=== PATIENT | male | born 1970 | race Caucasian/White ===

== ENCOUNTER → 2016-11-02 | Day surgery (SDC) | payer OTHER ==
[~2016-11-02] VITALS: Ht 170.2 cm; Wt 56.5 kg
[2016-11-02 07:40] LABS: HCT 41.4 % (42.0-52.0); HGB 13.8 g/dl (13.2-18.0); MCH 30.4 pg (25.0-31.0); MCHC 33.3 g/dL (32.0-36.0); MCV 91.2 fL (78.0-100.0); MPV 9.5 fL (6.0-9.5); RBC 4.54 M/uL (4.70-6.00); RDW 13.1 % (11.5-14.0)
[2016-11-02 07:57] LABS: CREATININE 1.1 mg/dL (0.7-1.2); POTASSIUM 4.5 mmol/L (3.5-5.1)
== END | disposition home or self-care (01) ==
LOC: FAS 06:52
PROVIDERS: Legal Medicine
DX: G56.01 Carpal tunnel syndrome, right upper limb (principal); I10 Essential (primary) hypertension; K21.9 Gastro-esophageal reflux disease without esophagitis; Z87.891 Personal history of nicotine dependence; Z79.899 Other long term (current) drug therapy
CPT/HCPCS: 36415; 80048; J2704; J2795; J3010

== ENCOUNTER 2020-03-01 09:30 | Emergency (ER) | payer OTHER ==
[~2020-03-01 09:30] MED LIST: COZAAR50 MG PO; LIPITOR 10MG TA10 MG PO; PRILOSEC20 MG PO; VENTOLIN (2.5 MG/3 M INH
[2020-03-01 10:42] LABS: BASOPHIL 0.5 % (0-2); EOSINOPHIL 4.8 % (0-5); HGB 14.9 g/dl (13.2-18.0); LYMPHOCYTE 10.9 % (15-48); MCH 29.9 pg (25.0-31.0); MCHC 33.1 g/dL (32.0-36.0); MCV 90.4 fL (78.0-100.0); MONOCYTE 6.6 % (0-12); MPV 9.3 fL (6.0-9.5); NRBC 0; PLT 294 K/uL (150-400); RBC 4.98 M/uL (4.70-6.00); WBC 10.1 K/uL (4.0-10.5)
[2020-03-01 11:03] LABS: ALBUMIN 4.3 g/dL (3.4-5.0); BILIRUBIN - TOTAL 0.3 mg/dL (0.2-1.0); BUN/CREAT RATIO (CALC) 14.1 RATIO; CREATININE 0.99 mg/dL (0.67-1.17); GLOBULIN (CALCULATION) 3.2 g/dL; POTASSIUM 4.3 mmol/L (3.5-5.1); TOTAL PROTEIN 7.5 g/dL (6.4-8.2)
[2020-03-01] MEDS ORDERED: PREDNISONE20 MG PO (12:08)
== END 2020-03-01 12:38 | disposition home or self-care (01) ==
LOC: FER 09:30
PROVIDERS: Emergency Medicine
DX: J44.1 Chronic obstructive pulmonary disease with (acute) exacerbation (principal)
CPT/HCPCS: 36415; 36600; 71045; 80053; 82803; 84484; 85025; 93005; 94640; J2930